=== PATIENT | female | born 1970 | race Caucasian/White ===

== ENCOUNTER → 2018-10-23 | Outpatient (CLI) | payer OTHER ==
[~2018-10-23] MED LIST: FLUT9.9S NS; GADOBUTROL 7.5 MMOL/7.5 ML VIAL IV ONE; NAPR220T70 PO; SERT50TA PO
--- NOTE | 2018-10-23 16:16 | KCIC ---
EXAMINATION: Magnetic resonance imaging (MRI) of the brain and brainstem without and with contrast 10/23/2018 2:45 PM HISTORY: Acute right foot drop without relief TECHNIQUE: Multiplanar multi-weighted MRI of the brain and brainstem was performed without and with intravenous contrast using the general brain protocol. Contrast information: 6 mL Gadolinium based contrast COMPARISON: None available. FINDINGS: The scalp and calvarium are normal. The superior sagittal sinus demonstrates normal venous flow. The corpus callosum is normal in shape and signal intensity. The posterior fossa is unremarkable. The pituitary and sella are normal. The brainstem and craniocervical junction are unremarkable. Diffusion weighted images reveal no hyperintensities to suggest acute cerebral infarction. The susceptibility weighted sequences reveal no evidence of acute or chronic hemorrhage. The ventricles are normal in size and position without evidence of hydrocephalus. There are no areas of abnormal contrast enhancement. The paranasal sinuses are normal. The visualized portions of the mastoids are unremarkable. The orbits appear normal. Normal flow voids are demonstrated in the carotid arteries and basilar artery. IMPRESSION: No evidence for acute or subacute ischemia. Suspicious intracranial abnormality is identified. Electronically signed by: Bety Morillo MD (10/23/2018 4:13 PM) [id number]
== END | disposition home or self-care (01) ==
LOC: KCIC MRI 14:47
PROVIDERS: ATTEND Family Medicine
DX: M21.371 Foot drop, right foot (principal); F17.200 Nicotine dependence, unspecified, uncomplicated
CPT/HCPCS: 70553; A9585

== ENCOUNTER → 2019-01-16 | Outpatient (CLI) | payer OTHER ==
[~2019-01-16] MED LIST changes: -GADOBUTROL 7.5 MMOL/7.5 ML VIAL IV ONE
--- NOTE | 2019-01-16 18:13 | KCIC ---
STUDY: MRI of the right lower leg without contrast INDICATION: Right common peroneal nerve neuropathy. COMPARISON: No prior cross-sectional imaging available for comparison. TECHNIQUE: Multiplanar MR imaging of the right lower leg with the [id number] extending from the distal femur through the ankle. No intravenous contrast administered. FINDINGS: Extensive muscular edema diffusely involving the tibialis anterior and extensor digitorum longus muscle bellies with relative sparing of the peroneus longus. No mass, fluid collection, vascular abnormality or osseous abnormality seen to impinge upon the common peroneal nerve nor the superficial or deep peroneal nerves along their expected course. Muscular bulk is maintained. No acute osseous abnormality. 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 Tiny Spivey's cyst. Mild Achilles tendinosis. Small volume flexor tendon sheath fluid. Patulous anterolateral joint capsule the ankle could represent prior injury to the ATFL. IMPRESSION: 1. 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 No discrete soft tissue, vascular or osseous abnormality seen along the expected course of the peroneal nerve to account for this appearance. 2. Some partially evaluated degenerative changes at the knee and ankle, as detailed above. Electronically signed by: MIGUEL REDDY MD (01/16/2019 6:10 PM) [id number]
== END | disposition home or self-care (01) ==
LOC: KCIC MRI 10:08
PROVIDERS: ATTEND Psychiatry & Neurology Neurology with Special Qualifications in Child Neurology
DX: M17.11 Unilateral primary osteoarthritis, right knee (principal); M71.21 Synovial cyst of popliteal space [Baker], right knee; M19.071 Primary osteoarthritis, right ankle and foot; M25.461 Effusion, right knee; G57.31 Lesion of lateral popliteal nerve, right lower limb
CPT/HCPCS: 73721

== ENCOUNTER 2021-09-25 20:34 | Emergency (ER) | payer OTHER ==
[~2021-09-25] VITALS: Ht 167.6 cm; Wt 62.4 kg
[2021-09-25 21:30] VITALS: BP 131/69
== END 2021-09-25 22:00 | disposition left against medical advice (07) ==
LOC: ER 20:34
DX: R10.9 Unspecified abdominal pain (principal); R11.0 Nausea; R19.7 Diarrhea, unspecified; Z53.21 Procedure and treatment not carried out due to patient leaving prior to being seen by health care provider